=== PATIENT | female | born 1980 | race Caucasian/White ===

== ENCOUNTER → 2024-02-23 08:25 | Outpatient (REF) | payer OTHER, SELFPAY | LOC: HWRAD 08:25 | PROVIDERS: ATTENDING PHYSICIAN Obstetrics & Gynecology; FAMILY PHYSICIAN Nurse Practitioner Family | DX: R14.0 Abdominal distension (gaseous) (principal); E66.813 Obesity, class 3 | CPT/HCPCS: 76830; 76856 ==